=== PATIENT | male | born 1945 | race Caucasian/White ===

== ENCOUNTER 2022-08-12 10:19 | Day surgery (SDC) | payer MEDICARE ==
--- NOTE | 2022-08-12 09:07 | HP ---
DATE OF SURGERY: 08/12/2022 HISTORY OF PRESENT ILLNESS: The patient is a 77-year-old with left inguinal aches and bulges. No prior surgery. It is felt he has a left inguinal hernia. I feel he would benefit from repair. PAST MEDICAL HISTORY: Gastroesophageal reflux disease, arthritis, hypertension. PAST SURGICAL HISTORY: Back surgery. Rotator cuff surgery. Bilateral knee replacement. MEDICATIONS: Toprol, furosemide, amlodipine, aspirin. ALLERGIES: NKDA. FAMILY HISTORY: Heart disease, history of CVA. SOCIAL HISTORY: Former smoker. No alcohol abuse. REVIEW OF SYSTEMS: Fourteen systems reviewed. No chest pain or palpitations. Other systems negative or noncontributory as above and per preadmission questionnaire. PHYSICAL EXAMINATION: BMI 27.91. GENERAL: No acute distress. HEENT: Sclerae nonicteric. NECK: No JVD. CHEST: Equal excursion, nonlabored breathing. CVS: Regular rate and rhythm. ABDOMEN: Soft. Left inguinal hernia on exam. EXTREMITIES: No significant edema. NEURO: Alert, oriented, moving extremities symmetrically. PSYCH: Appropriate mood and affect. SKIN: Dry. IMPRESSION: Left inguinal hernia. I feel the patient would benefit from repair. He was given option of open repair versus laparoscopic repair. The patient prefers to go ahead with open repair. General risk of bleeding or infection, risk of bowel injury, risk of ingrown hair or suture reaction, risk of swelling or firmness on the incision, risk of hematoma or seroma, risk of black, blue bruising, risk of hernia recurrence, risk of mesh infection possibly requiring removal, general risk of aches, pains, burning, numbness lower abdomen, groin, thigh or scrotal area possibly shelter or chronic in nature up to 10-12%, risk of sensory nerve irritation or scar formation or injury, possibly interfering with sexual function from aches and pains standpoint, possibly high risk of hernia recurrence. General risk of anesthesia, sedation, deep venous thrombosis, pulmonary embolism, pneumonia, perioperative aches and pain, risk of hernia recurrence, general risk of anesthesia, deep vein thrombosis, pulmonary embolism, pneumonia but not limited to. He understands and agrees to the planned procedure. Will proceed with open repair of left inguinal hernia with mesh as an outpatient.
[~2022-08-12 10:19] MED LIST: Lactated Ringers 1,000 ML IV ONE; Sensorcaine 0.25% 10 ML ONE
[2022-08-12] MEDS: Lactated Ringers 1,000 ML IV SCH (10:28)
[2022-08-12] MEDS: CEFAZOLIN 2 GM-D5W BAG** 2 GM/50 ML ML IV SCH (10:28)
[2022-08-12] MEDS ORDERED: DIPRIVAN 200 MG/20 ML IV ONE (12:53)
[2022-08-12] MEDS ORDERED: Xylocaine-Mpf 2% 5 Ml Vial ONE (12:54)
[2022-08-12] MEDS ORDERED: Zofran 4 MG/2 ML VIAL ONE (12:54)
[2022-08-12] MEDS ORDERED: Decadron 4 MG INJ ONE (12:54)
[2022-08-12] MEDS ORDERED: SUBLIMAZE 100 MCG/2 ML ONE ×2 (12:54→15:08)
[2022-08-12] MEDS ORDERED: Quelicin Fliptop 200 MG/10 ML ONE (12:54)
[2022-08-12] MEDS ORDERED: OFIRMEV 100 ML IV ONE (13:01)
[2022-08-12] MEDS ORDERED: Pre-Attached Lta Kit TP ONE (13:04)
[2022-08-12] MEDS ORDERED: Sensorcaine 0.25% 10 ML ONE (13:05)
[2022-08-12] MEDS ORDERED: PHENYLEPHRINE HCL ONE (13:22)
[2022-08-12] MEDS ORDERED: Zemuron 100 MG/10 ML ONE (13:29)
[2022-08-12] MEDS ORDERED: BRIDION 200MG/2ML IV ONE (13:33)
[2022-08-12] MEDS ORDERED: ROBINUL ONE (14:09)
[2022-08-12] MEDS ORDERED: DUONEB 0.5-3 MG/3 ml Neb IH ONE (16:26)
[2022-08-12 16:30] VITALS: BP 163/71
[2022-08-12] MEDS: DUONEB 0.5-3 MG/3 ml Neb IH ONE (16:46)
[2022-08-12 16:47] VITALS: PULSE 53; O2SAT 91
--- NOTE | 2022-08-13 11:20 | OP ---
SURGERY DATE/TIME: 08/12/2022 9879 PREOPERATIVE DIAGNOSIS: Left inguinal hernia. POSTOPERATIVE DIAGNOSIS: Left inguinal hernia including small cord lipoma. PROCEDURES: 1) Open repair left inguinal with mesh. 2) Excision of small cord lipoma. SURGEON: Dr. Dax Blanco. ANESTHESIA: General. ESTIMATED BLOOD LOSS: Minimal. INDICATIONS: As noted above. Risks and benefits explained in detail and not limited to and consent was obtained. DESCRIPTION OF PROCEDURE AND FINDINGS: The patient is taken to the operating room. General anesthesia induced. The site had been confirmed and marked in the preoperative holding area. After official time out and no disagreement with planned procedure, a transverse incision made. Left inguinal dissection carried down through Emma fascia to the external oblique towards the external ring. The cord is mobilized off the pubic tubercle with Jocelyn drain. There was quite a bit of fat on the cord but had a direct hernia component and small indirect component as well as small median cord lipoma laterally. Cord lipoma carefully dissected away from the cord structures and high ligated with some 3-0 Vicryl suture ligature and passed off. There was a little small indirect hernia sac this was high ligated with some Vicryl suture. Otherwise it had a direct hernia component, quite weak tissue this is imbricated back towards the fascia on the edge of the inguinal ligament with running 0 PDS up to more normal sized internal ring. Good hemostasis noted. Carefully protecting the visible inguinal and hypogastric branches. Keyhole mesh was used regular size, secured with the fascia around pubic tubercle with 0 Prolene and along Samuel's ligament with 0 Prolene, along the shelving portion of the ilioinguinal ligament and laterally past the internal ring with 0 Prolene. 0 Prolene used to transfix the tails together lateral with 0 Prolene. 0 Prolene used to transfix the rectus fascia medially and 0 Vicryl used to transfix it to the aponeurosis and internal oblique superiorly avoiding the visible branches of the iliohypogastric nerve. Tails are lying nice and flat on external oblique laterally. Good hemostasis noted. New internal ring felt to be not too tight. Good hemostasis noted. The wound is irrigated out. External oblique closed with 0 Vicryl. Emma closed with 3-0 Vicryl. Subcu closed with 3-0 Vicryl. Skin closed with 4-0 Vicryl. Steri-Strips and sterile dressings applied. The patient tolerated the procedure well. He did have moderately weak tissue. It was felt he was needing this to prevent recurrence down the road, best repair as possible at this point. Findings discussed with the family out in the waiting area.
== END 2022-08-12 16:45 | disposition home or self-care (01) ==
LOC: SDC 10:19
PROVIDERS: ATTEND Surgery
DX: K40.30 Unilateral inguinal hernia, with obstruction, without gangrene, not specified as recurrent (principal); D17.6 Benign lipomatous neoplasm of spermatic cord
CPT/HCPCS: 49505; 55520; 64486; 76937; 94640; C1781; 76942; 99100; J0330; J0690; J1100; J2370; J2405; J2704; J3010; A9270-GY

== ENCOUNTER 2024-04-04 14:19 | Observation (INO) | payer MEDICARE ==
--- NOTE | 2024-04-04 14:56 | ERPHSYRPT ---
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 Normal mental status and neuro exam except for gait and leaning to left, without pronator drift or facial weakness and right vision espinoza intact but acuity decreased at 20/50. His Timing/Duration: yesterday Severity: moderate Character of Deficits: vision problems, other (leaning to left) Deficits: off balance Baseline/Normal Cognition: alert oriented x 3 Current Cognition: alert oriented x 3 Baseline Gait: walks w/o assistance Associated Symptoms: denies symptoms Allergies/Adverse Reactions: No Known Drug Allergies Allergy (Verified 04/04/24 14:45) Home Medications: Amlodipine Besylate 5 mg [Norvasc 5 mg] 10 mg PO DAILY 07/16/22 [History] Furosemide 40 mg [Lasix 40 MG] 40 mg PO DAILY 07/16/22 [History] Metoprolol Succinate 100 mg [Toprol Xl 100 MG] 100 mg PO DAILY 07/16/22 [History] Fluticasone Propionate [Flonase NASAL] 2 sprays NS DAILY 04/04/24 [History] Losartan/Hydrochlorothiazide [Losartan-Hctz 100-12.5 mg Tab] 1 each PO DAILY 04/04/24 [History] Hx Tetanus, Diphtheria Vaccination/Date Given: No Hx Influenza Vaccination/Date Given: No Hx Pneumococcal Vaccination/Date Given: No Immunizations Up to Date: Yes Travel Risk - International Travel Have you traveled outside of the country in past 3 weeks: No - Emerging Infectious Disease Are you exhibiting symptoms associated with any current EIDs: No - Review of Systems Constitutional: No Fever, No Chills Eyes: No Symptoms Ears, Nose, & Throat: No Symptoms Respiratory: No Cough, No Dyspnea Cardiac: No Chest Pain, No Edema, No Syncope Abdominal/Gastrointestinal: No Abdominal Pain, No Nausea, No Vomiting, No Diarrhea Genitourinary Symptoms: No Dysuria Musculoskeletal: No Back Pain, No Neck Pain Skin: No Rash Neurological: No Dizziness, No Focal Weakness, No Sensory Changes Psychological: No Symptoms Endocrine: No Symptoms Hematologic/Lymphatic: No Symptoms Immunological/Allergic: No Symptoms All Other Systems: Reviewed and Negative - Past Medical History Pertinent Past Medical History: Yes Neurological History: No Pertinent History ENT History: No Pertinent History Cardiac History: Hypertension Respiratory History: No Pertinent History Endocrine Medical History: No Pertinent History Musculoskeletal History: Osteoarthritis GI Medical History: GERD History: No Pertinent History Psycho-Social History: No Pertinent History Male Reproductive Disorders: No Pertinent History - Past Surgical History Past Surgical History: Yes Neuro Surgical History: No Pertinent History Cardiac: No Pertinent History Respiratory: No Pertinent History Gastrointestinal: No Pertinent History Genitourinary: No Pertinent History Musculoskeletal: Orthopedic Surgery Male Surgical History: No Pertinent History Other Surgical History: back and knee surgery,shoulder - Social History Smoking Status: Former smoker Exposure to second hand smoke: No Drug Use: none - Social Determinants of Health Do you worry about a steady place to live?: No Do you have any problems with any of the following?: No known problems In the past 12 months,have you had to go without utilities?: No Transportation Issues: No Has anyone in your support network made you feel unsafe?: No Have you or anyone in your house had to go without enough: No - Nursing Vital Signs Nursing Vital Signs: Initial Vital Signs Pulse Rate 62 04/04/24 14:30 Respiratory Rate 20 04/04/24 14:30 Blood Pressure 150/59 04/04/24 14:30 O2 Sat by Pulse Oximetry 93 L 04/04/24 14:30 Pain Scale Pain Intensity 3 - Anderson Coma Scale Best Eye Response (Anderson): (4) open spontaneously Best Verbal Response (Uriel): (5) oriented Best Motor Response (Anderson): (6) obeys commands Anderson Total: 15 - Physical Exam General Appearance: no apparent distress, alert Eye Exam: bilateral eye: PERRL, EOMI Ears, Nose, Throat Exam: normal ENT inspection, moist mucous membranes Neck Exam: normal inspection, non-tender, supple Respiratory: normal breath sounds, lungs clear, airway intact, No respiratory distress, No accessory muscle use, No crackles/rales, No rhonchi, No wheezing, No stridor Cardiovascular: regular rate/rhythm, No edema Gastrointestinal: soft, No tenderness, No distention Back Exam: normal inspection Extremity Exam: normal inspection, No pedal edema Peripheral Pulses: carotid (R): 2+, carotid (L): 2+, femoral (R): 2+, femoral (L): 2+, dorsalis-pedis (R): 2+, dorsalis-pedis (L): 2+ Mental Status: alert, 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: tongue midline Coordination/Gait: normal finger to nose, normal gait DTR: bicep (R): 2+, bicep (L): 2+, tricep (R): 2+, tricep (L): 2+, knee (R): 2+, knee (L): 2+, ankle (R): 2+, ankle (L): 2+ Skin Exam: normal color, warm, dry, No rash SpO2: 93 - Course Nursing assessment & vital signs reviewed: Yes Ordered Tests: Active Orders 24 hr Category Date Time Status Freight Broker STAT Care 04/04/24 15:06 Active EKG-ER Only STAT Care 04/04/24 15:06 Active IV Insertion STAT Care 04/04/24 15:06 Active Pulse Oximetry (ED) STAT Care 04/04/24 15:06 Active HEAD WITHOUT CONTRAST [CT] Stat Exams 04/04/24 15:15 Completed CBC W DIFF Stat Lab 04/04/24 15:10 Completed CMP Stat Lab 04/04/24 15:10 Completed TROPONIN Q4H Lab 04/04/24 15:10 Completed TROPONIN Q4H Lab 04/04/24 19:15 Ordered TROPONIN Q4H Lab 04/04/24 23:15 Ordered Lab/Rad Data: Laboratory Result Diagrams 04/04/24 15:10 04/04/24 15:10 Laboratory Results 04/04/24 04/04/24 04/04/24 Range/Units 15:10 15:10 15:10 WBC 6.4 (4.23-9.07) x10^3/uL RBC 5.59 (4.63-6.08) x10^6/uL Hgb 16.5 (13.7-17.5) g/dL Hct 50.8 (40.1-51.0) % MCV 90.9 (79.0-92.2) fL MCH 29.5 (25.7-32.2) pg MCHC 32.5 (32.3-36.5) g/dL RDW 13.2 (11.6-14.4) % Plt Count 215 (163-337) x10^3/uL MPV 11.0 (9.4-12.4) fL Gran % 61.8 (34.0-67.9) % Immature Gran % (Auto) 0.5 H (0.001-0.429) % Nucleat RBC Rel Count 0.0 (0.00-0.2) % Eos # (Auto) 0.43 (0.04-0.54) x10^3/uL Immature Gran # (Auto) 0.03 (0.001-0.031) x10^3u/L Absolute Lymphs (auto) 1.13 L (1.32-3.57) x10^3/uL Absolute Monos (auto) 0.81 (0.30-0.82) x10^3/uL Absolute Nucleated RBC 0.00 (0.00-0.012) x10^3u/L Lymphocytes % 17.6 L (21.8-53.1) % Monocytes % 12.6 H (5.3-12.2) % Eosinophils % 6.7 (0.8-7.0) % Basophils % 0.8 (0.2-1.2) % Absolute Granulocytes 3.98 (1.78-5.38) x10^3/uL Basophils # 0.05 (0.01-0.08) x10^3/uL Sodium 141 (135-145) mmol/L Potassium 3.8 (3.5-5.1) mmol/L Chloride 99 (98-107) mmol/L Carbon Dioxide 29 (22-30) mmol/L Anion Gap 16.8 H (5-15) MEQ/L BUN 26 H (9-20) mg/dL Creatinine 0.80 (0.66-1.25) mg/dL Estimated GFR 90.6 ML/MIN Glucose 132 H (74-106) mg/dL Calcium 9.1 (8.4-10.2) mg/dL Total Bilirubin 0.60 (0.2-1.3) mg/dL AST 35 (17-59) U/L ALT 30 (0-50) U/L Alkaline Phosphatase 82 (38-126) U/L Troponin I < 0.012 (0.000-0.033) ng/mL Serum Total Protein 7.2 (6.3-8.2) g/dL Albumin 4.3 (3.5-5.0) g/dL - Progress Progress: improved, re-examined Progress Note: 04/04/24 18:53 Consulted with tele neuro who advised admission for PT to avoid falls, and they also feel that outpt MRI tomorrow is soon enough to rule out additional Dx and that pt is outside TPA window but would benefit from expeditious. Consulted and discussed with pt family and Dr. Monson hospitalist and all agree best to palce pt in on obs and have MRI Friday and this is scheduled. Discussed with Dr.: Other (Dr. Monson) Will see patient in: hospital (observation) Counseled pt/family regarding: lab results, diagnosis, need for follow-up, rad results Medical Desision Making - Independent Historian Additional History obtained from: Family - Discussion of managment Care discussed with:: specialist Reviewed:: Test results, Need for additional workup Agreed on:: Treatment plan, need for follow-up - Diagnostic Testing Diagnostic test were ordered, analyzed, and reviewed by me: Yes Radiological Interpretation: Interpreted by me, Reviewed by me, Teleradiologist Report - Risk of complications The pt has a mod risk of morbidity or mortality based on: Need for prescription drug management The pt has a high risk of morbidity or mortality based on: Decision regarding hospitilization or escalation of hosp level of care - Departure Departure Disposition: Observation Clinical Impression: ataxia, vision changes Condition: Good Critical Care Time: No Referrals: AMADO ROME MD [Primary Care Provider] - Follow up/PCP as directed
[2024-04-04 15:18] LABS: Absolute Neutrophil Ct (ANC) 3.98 x10^3/uL (1.78-5.38); BASOPHIL % 0.8 % (0.2-1.2); Basophil (Absolute #) 0.05 x10^3/uL (0.01-0.08); Eosinophil % 6.7 % (0.8-7.0); Eosinophil (Absolute #) 0.43 x10^3/uL (0.04-0.54); Hematocrit 50.8 % (40.1-51.0); Hemoglobin 16.5 g/dL (13.7-17.5); IMMATURE GRAN # 0.03 x10^3u/L (0.001-0.031); IMMATURE GRAN % 0.5 % (0.001-0.429); Lymphocyte (Absolute #) 1.13 x10^3/uL (1.32-3.57); Lymphocytes % 17.6 % (21.8-53.1); Mean Cell Volume 90.9 fL (79.0-92.2); Mean Corpuscular Hemoglobin 29.5 pg (25.7-32.2); Mean Corpuscular Hgb Concent. 32.5 g/dL (32.3-36.5); Monocyte (Absolute #) 0.81 x10^3/uL (0.30-0.82); Monocytes % 12.6 % (5.3-12.2); Neutrophil % 61.8 % (34.0-67.9); Platelet Count 215 x10^3/uL (163-337); Red Blood Count 5.59 x10^6/uL (4.63-6.08); Red Cell Distribution Width 13.2 % (11.6-14.4); White Blood Count 6.4 x10^3/uL (4.23-9.07)
[2024-04-04 15:32] LABS: ALBUMIN 4.3 g/dL (3.5-5.0); ANION GAP 16.8 MEQ/L (5-15); BILIRUBIN,TOTAL 0.6 mg/dL (0.2-1.3); Calcium 9.1 mg/dL (8.4-10.2); Creatinine 1 0.8 mg/dL (0.66-1.25); EST GLOMERULAR FILTRATION RATE 90.6 ML/MIN; Potassium 3.8 mmol/L (3.5-5.1); Total Protein 7.2 g/dL (6.3-8.2)
--- NOTE | 2024-04-04 16:02 | XRAY ---
CLINICAL HISTORY: DIZZY COMPARISON: TECHNIQUE: Axial non-contrast CT scan of the brain was performed from the skull base to the high parietal region with coronal and sagittal reformats. One of the following dose reduction techniques were utilized for this exam: Automated exposure control, adjustment of the mA and/or kV according to patient size, and use of iterative reconstruction. CTDI:53.92mGy, DLP: 1002.79mGy*cm. FINDINGS: Brain Parenchyma: Normal attenuation of the cerebral hemispheres, cerebellum, and brainstem. No evidence of acute infarct, hemorrhage, or mass effect. Hypodense areas are noted in periventriclar, subcortical, and deep white matter representing chronic microvascular ischemic changes. Age related involutional changes are noted. Ventricular System: Ventricles are normal in size and configuration. No evidence of hydrocephalus or ventricular enlargement. Age-related brain atrophic changes are noted. Subarachnoid Spaces: Normal sulci and cisterns. No evidence of subarachnoid hemorrhage or extra-axial fluid collections. Cerebellum and Brainstem: Normal size and signal. No masses, lesions, or areas of abnormal signal. Orbits: Left eye lens is not visualized. Calcified rim is noted almost completely involving the left sclera. Right globe and orbit appear unremarkable. Sinuses: Clear paranasal sinuses. No evidence of sinusitis or mucosal thickening. Mildly deviated nasal septum is noted to the left side. Kae bullosa is noted on the right side. Mastoid Air Cells: Clear mastoid air cells. No evidence of mastoiditis. Skull and Meninges: Normal skull morphology. IMPRESSION: 1. No established territorial infarction, intracranial hemorrhage, or mass effect was noted. 2. Age-related brain atrophic changes and chronic microvascular ischemic changes. 3. Left eye lens is not visualized. 4. Calcified rim is noted almost completely involving the left sclera. Needs clinical correlation. Electronically Signed by: Karime Adamson MD. (04/04/2024 15:58:31 EDT)
[2024-04-04] MEDS ORDERED: TYLENOL 325 MG PO PRN (21:25)
--- NOTE | 2024-04-04 21:34 | PCM.HP ---
History of Present Illness - Chief Complaint Chief Complaint: loss of balance, blurry vision Date: 04/04/24 History of Present Illness: is a 79 year old man with h/o hypertension and possible HFpEF, here with blurry vision and unsteady gait. 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 However, last night at 2130, he had sudden onset of severe blurry vision in his right eye and dizziness with difficulty walking, such that he was afraid he would fall. He denies lightheadedness/presyncope, vertigo, headache, focal weakness or numbness. He has not had a similar episode of intense imbalance or sudden worsening of visual acuity. He quit smoking 20 years ago. Has never had CVA as far as he is aware. He notes that the thinks his vision and balance are improving a little, when he last had to walk to the bathroom, although still difficult compared to his baseline. - Review of Systems Constitutional: Fatigue, No Fever, No Malaise, No Night Sweats Eyes: Vision Changes, No Eye Pain, No Eye Redness, No Double Vision Ears, Nose, & Throat: No Ear Pain, No Hearing Changes, No Nose Congestion, No Sinus Drainage, No Throat Pain Respiratory: Short Of Breath (No dyspnea currently, but patient told he has intermittent hypoxia. He has home oxygen but does not use as currently non- functional. Low-normal SpO2 on arrival. Follows with barometers calibrator here. ), No Cough Cardiac: No Chest Pain, No Palpitations, No Syncope, No Orthopnea Abdominal/Gastrointestinal: No Abdominal Pain, No Nausea, No Vomiting Genitourinary Symptoms: No Dysuria, No Frequency Neurological: Dizziness, Gait Changes, No Focal Weakness, No Headache, No Paralysis, No Parasthesia All Other Systems: Reviewed and Negative Medications & Allergies Home Medications: Home Medication List Amlodipine Besylate 5 mg [Norvasc 5 mg] 10 mg PO DAILY 07/16/22 [History Confirmed 04/04/24] Furosemide 40 mg [Lasix 40 MG] 40 mg PO DAILY 07/16/22 [History Confirmed 04/04/24] Metoprolol Succinate 100 mg [Toprol Xl 100 MG] 100 mg PO DAILY 07/16/22 [History Confirmed 04/04/24] Aspirin EC 81 mg [Ecotrin 81 mg] 81 mg PO DAILY 04/04/24 [History Confirmed 04/04/24] Fluticasone Propionate [Flonase NASAL] 2 sprays NS DAILY 04/04/24 [History Confirmed 04/04/24] Losartan Potassium 100 mg PO DAILY 04/04/24 [History Confirmed 04/04/24] Allergies/Adverse Reactions: Allergies Allergy/AdvReac Type Severity Reaction Status Date / Time No Known Drug Allergies Allergy Verified 04/04/24 14:45 - Past Medical History Past Medical History: Yes Neurological History: No Pertinent History ENT History: No Pertinent History Cardiac History: Congestive Heart Failure, Hypertension Respiratory History: No Pertinent History, CHF, Sleep Apnea Endocrine Medical History: No Pertinent History Musculoskelatal History: Osteoarthritis GI Medical History: GERD History: No Pertinent History Pyscho-Social History: No Pertinent History Male Reproductive Disorders: No Pertinent History - Past Surgical History Past Surgical History: Yes Neuro Surgical History: No Pertinent History Cardiac History: No Pertinent History Respiratory Surgery: No Pertinent History GI Surgical History: No Pertinent History, Hernia Repair Genitourinary Surgical Hx: No Pertinent History Musculskeletal Surgical Hx: Orthopedic Surgery Male Surgical History: No Pertinent History Other Surgical History: back and knee surgery,shoulder Significant Family History: no pertinent family hx - Social History Smoking Status: Former smoker (quit 20 years ago) Exposure to second hand smoke: No Alcohol: None Drug Use: none - Social Determinants of Health Will the patient participate in the screening: Yes Do you worry about a steady place to live?: No Do you have any problems with any of the following?: No known problems In the past 12 months,have you had to go without utilities?: No Have you or anyone in your house had to go without enough: No Transportation Issues: No Has anyone in your support network made you feel unsafe?: No Does the patient want assistance with any of the above?: No - Physical Exam Vital Signs: Vital Signs - 24 hr Temp Pulse Resp BP BP Pulse Ox 04/04/24 20:02 98.2 F 54 L 16 179/78 91 L 04/04/24 18:58 93 L 04/04/24 18:00 107/86 92 L 04/04/24 17:30 79 12 160/71 90 L 04/04/24 17:00 57 L 14 147/63 90 L 04/04/24 16:50 55 L 14 91 L 04/04/24 16:40 55 L 13 90 L 04/04/24 16:30 51 L 17 92 L 04/04/24 16:20 58 L 15 90 L 04/04/24 16:10 56 L 15 91 L 04/04/24 16:00 55 L 14 92 L 04/04/24 15:50 55 L 18 90 L 04/04/24 15:40 57 L 19 90 L 04/04/24 15:32 56 L 19 92 L 04/04/24 15:19 95 04/04/24 15:01 129/54 04/04/24 14:30 53 L 17 150/59 150/59 91 L GENERAL: Lying in bed in no acute distress NEURO: Face symmetric, moving all extremities well, no sensory changes CV: mildly bradycardic but regular, no murmurs, no edema PULM: Clear to auscultation bilaterally, no work of breathing, on room air ABD: non-distended, non-tender PSYCH: alert, oriented x3 Results - Labs Lab/Micro Results: Lab Results-Last 24 Hours 04/04/24 04/04/24 04/04/24 Range/Units 15:10 15:10 15:10 WBC 6.4 (4.23-9.07) x10^3/uL RBC 5.59 (4.63-6.08) x10^6/uL Hgb 16.5 (13.7-17.5) g/dL Hct 50.8 (40.1-51.0) % MCV 90.9 (79.0-92.2) fL MCH 29.5 (25.7-32.2) pg MCHC 32.5 (32.3-36.5) g/dL RDW 13.2 (11.6-14.4) % Plt Count 215 (163-337) x10^3/uL MPV 11.0 (9.4-12.4) fL Gran % 61.8 (34.0-67.9) % Immature Gran % (Auto) 0.5 H (0.001-0.429) % Nucleat RBC Rel Count 0.0 (0.00-0.2) % Eos # (Auto) 0.43 (0.04-0.54) x10^3/uL Immature Gran # (Auto) 0.03 (0.001-0.031) x10^3u/L Absolute Lymphs (auto) 1.13 L (1.32-3.57) x10^3/uL Absolute Monos (auto) 0.81 (0.30-0.82) x10^3/uL Absolute Nucleated RBC 0.00 (0.00-0.012) x10^3u/L Lymphocytes % 17.6 L (21.8-53.1) % Monocytes % 12.6 H (5.3-12.2) % Eosinophils % 6.7 (0.8-7.0) % Basophils % 0.8 (0.2-1.2) % Absolute Granulocytes 3.98 (1.78-5.38) x10^3/uL Basophils # 0.05 (0.01-0.08) x10^3/uL Sodium 141 (135-145) mmol/L Potassium 3.8 (3.5-5.1) mmol/L Chloride 99 (98-107) mmol/L Carbon Dioxide 29 (22-30) mmol/L Anion Gap 16.8 H (5-15) MEQ/L BUN 26 H (9-20) mg/dL Creatinine 0.80 (0.66-1.25) mg/dL Estimated GFR 90.6 ML/MIN Glucose 132 H (74-106) mg/dL Calcium 9.1 (8.4-10.2) mg/dL Total Bilirubin 0.60 (0.2-1.3) mg/dL AST 35 (17-59) U/L ALT 30 (0-50) U/L Alkaline Phosphatase 82 (38-126) U/L Troponin I < 0.012 (0.000-0.033) ng/mL Serum Total Protein 7.2 (6.3-8.2) g/dL Albumin 4.3 (3.5-5.0) g/dL 04/04/24 Range/Units 19:08 WBC (4.23-9.07) x10^3/uL RBC (4.63-6.08) x10^6/uL Hgb (13.7-17.5) g/dL Hct (40.1-51.0) % MCV (79.0-92.2) fL MCH (25.7-32.2) pg MCHC (32.3-36.5) g/dL RDW (11.6-14.4) % Plt Count (163-337) x10^3/uL MPV (9.4-12.4) fL Gran % (34.0-67.9) % Immature Gran % (Auto) (0.001-0.429) % Nucleat RBC Rel Count (0.00-0.2) % Eos # (Auto) (0.04-0.54) x10^3/uL Immature Gran # (Auto) (0.001-0.031) x10^3u/L Absolute Lymphs (auto) (1.32-3.57) x10^3/uL Absolute Monos (auto) (0.30-0.82) x10^3/uL Absolute Nucleated RBC (0.00-0.012) x10^3u/L Lymphocytes % (21.8-53.1) % Monocytes % (5.3-12.2) % Eosinophils % (0.8-7.0) % Basophils % (0.2-1.2) % Absolute Granulocytes (1.78-5.38) x10^3/uL Basophils # (0.01-0.08) x10^3/uL Sodium (135-145) mmol/L Potassium (3.5-5.1) mmol/L Chloride (98-107) mmol/L Carbon Dioxide (22-30) mmol/L Anion Gap (5-15) MEQ/L BUN (9-20) mg/dL Creatinine (0.66-1.25) mg/dL Estimated GFR ML/MIN Glucose (74-106) mg/dL Calcium (8.4-10.2) mg/dL Total Bilirubin (0.2-1.3) mg/dL AST (17-59) U/L ALT (0-50) U/L Alkaline Phosphatase (38-126) U/L Troponin I < 0.012 (0.000-0.033) ng/mL Serum Total Protein (6.3-8.2) g/dL Albumin (3.5-5.0) g/dL - Radiology Impressions Radiology Exams & Impressions: Radiology Procedures Category Date Time Status HEAD WITHOUT CONTRAST [CT] Stat Exams 04/04/24 15:15 Completed MRI BRAIN W/O CONTRAST [MRI] Routine Exams 04/04/24 21:[address] Head - age-related atrophic changes, but no acute ischemic or hemorrhagic stroke - Other Procedures and Tests Respiratory Therapy 04/04/24 19:21 Respiratory Therapy Consult ONCE 04/04/24 21:13 BiPap/CPAP ROUTINE Assessment/Plan (1) Ataxia Current Visit: Yes Status: Acute Assessment & Plan: 79 y/o M with h/o HTN, possible HFpEF and borderline hypoxia, here with ataxia and vision changes. ## Possible CVA - patient with acute onset of ataxia associated with vision changes. No vertigo per description, but noted to have wide gait. Concerning for more central than peripheral process with the different neuro system findings and lack of ear symptoms or true vertigo. Most concerning for possible stroke. No large stroke or hemorrhage seen on CT. Patient's risk factors for stroke include age and hypertension. Note, BP a little elevated on arrival to floor. - place in observation for evaluation of stroke - neurology consulted in ED; see their note as well - obtain MRI brain for stroke evaluation - if present, will need echo, vascular imaging - check A1c, B12, Folate for other metabolic causes of ataxia - monitor on telemetry for possible cardioembolic causes of stroke - allow permissive hypertension tonight for possible stroke - PT/OT evaluation for his gait, consideration for rehab - continue his aspirin 81 mg daily - if find stroke, will need addition of Plavix for 3 weeks ## Hypertension - BP a little elevated this evening. - allow permissive hypertension tonight - restart home BP meds in the morning to allow BP to come down slowly tomorrow - losartan 100, Toprol XL 100, Norvasc 10, Lasix 40 ## Borderline hypoxia - patient reports h/o intermittent hypoxia requiring supplementation oxygen at home. Here he has maintained SpO2 in low 90s, and not yet required oxygen. - monitor on continuous pulse oximetry. Code status: Full code Prophylaxis: lovenox (Cassy score 5) Diet: Regular Dispo: Place in observation, expect home in next 24-48 hours after evaluation Code(s): R27.0 - ATAXIA, UNSPECIFIED Telemedicine Encounter - Telemedicine Encounter Telemedicine Encounter: "The entirety of this encounter was performed via Telemedicine" This visit was performed using real-time audio and video connection between my location and thepatients locationwith the assistance of a surrogateat the patients location. Written or verbal consent was obtained from the patient/guardian to perform this visit usingsynchronoustelemedicine technology. Any patient questions regarding the telemedicine interaction were answered.
[2024-04-05 04:34] LABS: Hematocrit 50.1 % (40.1-51.0); Hemoglobin 16.4 g/dL (13.7-17.5); Mean Cell Volume 90.3 fL (79.0-92.2); Mean Corpuscular Hemoglobin 29.5 pg (25.7-32.2); Mean Corpuscular Hgb Concent. 32.7 g/dL (32.3-36.5); Mean Platelet Volume 10.4 fL (9.4-12.4); Platelet Count 198 x10^3/uL (163-337); Red Blood Count 5.55 x10^6/uL (4.63-6.08); Red Cell Distribution Width 13.3 % (11.6-14.4); White Blood Count 6.9 x10^3/uL (4.23-9.07)
[2024-04-05 04:59] LABS: ANION GAP 10.6 MEQ/L (5-15); Calcium 9.1 mg/dL (8.4-10.2); Creatinine 1 0.67 mg/dL (0.66-1.25); EST GLOMERULAR FILTRATION RATE 95.6 ML/MIN; Potassium 3.8 mmol/L (3.5-5.1)
--- NOTE | 2024-04-05 05:17 | PCM.NOTE ---
Date and Time: 04/05/24 0511 Subjective Assessment: HPI: Mr. Lynn is a 79 year old male with a pmhx of HTN, OA, and GERD admitted 04/04/24 for evaluation of ataxia and vision changes. Patient reported unsteady gait ( for the past 6-8 months), dizziness and blurred vision in right eye since the evening before arrival. 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 He has not had a similar episode of intense imbalance or sudden worsening of visual acuity. CT head with no established territorial infarction, intracranial hemorrhage, or mass. Left eye lens is not visualized. Calcified rim is noted almost completely involving the left sclera effect was noted. Lab findings remarkable for elevated GAP and BUN. Vitals stable. Neurology consulted with recommendations for MRI and PT evaluation. 04/05/24: Met with patient bedside. Dizziness and vision blurriness have resolved. Plan for MRI today. No aphasia or weakness. Patient is requesting discharge today. Tele-neuro consulted with recs to continue 81mg ASA and ophthalmology appt. Patient states he does need a new pair of glasses and has appt in May -we will try to move this up for him. PT to work with patient today. Neuro exam normal. Pending results, patient may be able to discharge today. - Review of Systems Constitutional: No Symptoms Eyes: No Symptoms Ears, Nose, & Throat: No Symptoms Respiratory: No Symptoms Cardiac: No Symptoms Abdominal/Gastrointestinal: No Symptoms Genitourinary Symptoms: No Symptoms Musculoskeletal: No Symptoms Skin: No Symptoms Neurological: No Symptoms Psychological: No Symptoms Endocrine: No Symptoms Hematologic/Lymphatic: No Symptoms Immunological/Allergic: No Symptoms Objective Exam General Appearance: no apparent distress Neurologic Exam: alert, oriented x 3, cooperative, normal mood/affect, No motor deficits, No sensory deficit, No confusion, No motor weakness, No facial droop, No slurred speech, No aphasia Skin Exam: normal color Eye Exam: PERRL Ears, Nose, Throat Exam: normal ENT inspection Neck Exam: normal inspection Respiratory Exam: normal breath sounds, lungs clear Cardiovascular Exam: regular rate/rhythm, normal heart sounds Gastrointestinal/Abdomen Exam: soft, normal bowel sounds Extremity Exam: normal inspection Back Exam: normal inspection Male Genitalia Exam: deferred Rectal Exam: deferred Objective Data Vital Signs: Vital Signs - 24 hr Temp Pulse Resp BP BP Pulse Ox 04/05/24 03:54 14 04/05/24 03:47 97.9 F 63 22 130/96 93 L 04/04/24 23:59 14 04/04/24 23:52 97.9 F 71 16 178/74 94 L 04/04/24 22:00 56 L 16 91 L 04/04/24 20:02 98.2 F 54 L 16 179/78 91 L 04/04/24 18:58 93 L 04/04/24 18:00 107/86 92 L 04/04/24 17:30 79 12 160/71 90 L 04/04/24 17:00 57 L 14 147/63 90 L 04/04/24 16:50 55 L 14 91 L 04/04/24 16:40 55 L 13 90 L 04/04/24 16:30 51 L 17 92 L 04/04/24 16:20 58 L 15 90 L 04/04/24 16:10 56 L 15 91 L 04/04/24 16:00 55 L 14 92 L 04/04/24 15:50 55 L 18 90 L 04/04/24 15:40 57 L 19 90 L 04/04/24 15:32 56 L 19 92 L 04/04/24 15:19 95 04/04/24 15:01 129/54 04/04/24 14:30 53 L 17 150/59 150/59 91 L Pain Assessment - Last Documented Pain Intensity 3 Intake and Output: Intake & Output 04/02/24 04/03/24 04/04/24 04/05/24 11:59 11:59 11:59 11:59 Intake Total 280 Balance 280 Weight 91.6 kg Lab Results: Lab Results-Last 24 Hours 04/04/24 04/04/24 04/04/24 Range/Units 15:10 15:10 15:10 WBC 6.4 (4.23-9.07) x10^3/uL RBC 5.59 (4.63-6.08) x10^6/uL Hgb 16.5 (13.7-17.5) g/dL Hct 50.8 (40.1-51.0) % MCV 90.9 (79.0-92.2) fL MCH 29.5 (25.7-32.2) pg MCHC 32.5 (32.3-36.5) g/dL RDW 13.2 (11.6-14.4) % Plt Count 215 (163-337) x10^3/uL MPV 11.0 (9.4-12.4) fL Gran % 61.8 (34.0-67.9) % Immature Gran % (Auto) 0.5 H (0.001-0.429) % Nucleat RBC Rel Count 0.0 (0.00-0.2) % Eos # (Auto) 0.43 (0.04-0.54) x10^3/uL Immature Gran # (Auto) 0.03 (0.001-0.031) x10^3u/L Absolute Lymphs (auto) 1.13 L (1.32-3.57) x10^3/uL Absolute Monos (auto) 0.81 (0.30-0.82) x10^3/uL Absolute Nucleated RBC 0.00 (0.00-0.012) x10^3u/L Lymphocytes % 17.6 L (21.8-53.1) % Monocytes % 12.6 H (5.3-12.2) % Eosinophils % 6.7 (0.8-7.0) % Basophils % 0.8 (0.2-1.2) % Absolute Granulocytes 3.98 (1.78-5.38) x10^3/uL Basophils # 0.05 (0.01-0.08) x10^3/uL Sodium 141 (135-145) mmol/L Potassium 3.8 (3.5-5.1) mmol/L Chloride 99 (98-107) mmol/L Carbon Dioxide 29 (22-30) mmol/L Anion Gap 16.8 H (5-15) MEQ/L BUN 26 H (9-20) mg/dL Creatinine 0.80 (0.66-1.25) mg/dL Estimated GFR 90.6 ML/MIN Glucose 132 H (74-106) mg/dL Hemoglobin A1c (4.5-6.0) % Calcium 9.1 (8.4-10.2) mg/dL Total Bilirubin 0.60 (0.2-1.3) mg/dL AST 35 (17-59) U/L ALT 30 (0-50) U/L Alkaline Phosphatase 82 (38-126) U/L Troponin I < 0.012 (0.000-0.033) ng/mL Serum Total Protein 7.2 (6.3-8.2) g/dL Albumin 4.3 (3.5-5.0) g/dL 04/04/24 04/04/24 04/05/24 Range/Units 19:08 23:36 04:30 WBC 6.9 (4.23-9.07) x10^3/uL RBC 5.55 (4.63-6.08) x10^6/uL Hgb 16.4 (13.7-17.5) g/dL Hct 50.1 (40.1-51.0) % MCV 90.3 (79.0-92.2) fL MCH 29.5 (25.7-32.2) pg MCHC 32.7 (32.3-36.5) g/dL RDW 13.3 (11.6-14.4) % Plt Count 198 (163-337) x10^3/uL MPV 10.4 (9.4-12.4) fL Gran % (34.0-67.9) % Immature Gran % (Auto) (0.001-0.429) % Nucleat RBC Rel Count (0.00-0.2) % Eos # (Auto) (0.04-0.54) x10^3/uL Immature Gran # (Auto) (0.001-0.031) x10^3u/L Absolute Lymphs (auto) (1.32-3.57) x10^3/uL Absolute Monos (auto) (0.30-0.82) x10^3/uL Absolute Nucleated RBC (0.00-0.012) x10^3u/L Lymphocytes % (21.8-53.1) % Monocytes % (5.3-12.2) % Eosinophils % (0.8-7.0) % Basophils % (0.2-1.2) % Absolute Granulocytes (1.78-5.38) x10^3/uL Basophils # (0.01-0.08) x10^3/uL Sodium (135-145) mmol/L Potassium (3.5-5.1) mmol/L Chloride (98-107) mmol/L Carbon Dioxide (22-30) mmol/L Anion Gap (5-15) MEQ/L BUN (9-20) mg/dL Creatinine (0.66-1.25) mg/dL Estimated GFR ML/MIN Glucose (74-106) mg/dL Hemoglobin A1c (4.5-6.0) % Calcium (8.4-10.2) mg/dL Total Bilirubin (0.2-1.3) mg/dL AST (17-59) U/L ALT (0-50) U/L Alkaline Phosphatase (38-126) U/L Troponin I < 0.012 < 0.012 (0.000-0.033) ng/mL Serum Total Protein (6.3-8.2) g/dL Albumin (3.5-5.0) g/dL 04/05/24 04/05/24 Range/Units 04:30 04:30 WBC (4.23-9.07) x10^3/uL RBC (4.63-6.08) x10^6/uL Hgb (13.7-17.5) g/dL Hct (40.1-51.0) % MCV (79.0-92.2) fL MCH (25.7-32.2) pg MCHC (32.3-36.5) g/dL RDW (11.6-14.4) % Plt Count (163-337) x10^3/uL MPV (9.4-12.4) fL Gran % (34.0-67.9) % Immature Gran % (Auto) (0.001-0.429) % Nucleat RBC Rel Count (0.00-0.2) % Eos # (Auto) (0.04-0.54) x10^3/uL Immature Gran # (Auto) (0.001-0.031) x10^3u/L Absolute Lymphs (auto) (1.32-3.57) x10^3/uL Absolute Monos (auto) (0.30-0.82) x10^3/uL Absolute Nucleated RBC (0.00-0.012) x10^3u/L Lymphocytes % (21.8-53.1) % Monocytes % (5.3-12.2) % Eosinophils % (0.8-7.0) % Basophils % (0.2-1.2) % Absolute Granulocytes (1.78-5.38) x10^3/uL Basophils # (0.01-0.08) x10^3/uL Sodium 139 (135-145) mmol/L Potassium 3.8 (3.5-5.1) mmol/L Chloride 101 (98-107) mmol/L Carbon Dioxide 30 (22-30) mmol/L Anion Gap 10.6 (5-15) MEQ/L BUN 20 (9-20) mg/dL Creatinine 0.67 (0.66-1.25) mg/dL Estimated GFR 95.6 ML/MIN Glucose 103 (74-106) mg/dL Hemoglobin A1c 5.97 (4.5-6.0) % Calcium 9.1 (8.4-10.2) mg/dL Total Bilirubin (0.2-1.3) mg/dL AST (17-59) U/L ALT (0-50) U/L Alkaline Phosphatase (38-126) U/L Troponin I (0.000-0.033) ng/mL Serum Total Protein (6.3-8.2) g/dL Albumin (3.5-5.0) g/dL Radiology Exams: Radiology Procedures Category Date Time Status HEAD WITHOUT CONTRAST [CT] Stat Exams 04/04/24 15:15 Completed MRI BRAIN W/O CONTRAST [MRI] Routine Exams 04/04/24 21:26 Ordered Assessment/Plan (1) Ataxia Current Visit: Yes Status: Acute Assessment & Plan: -?possible CVA -CT head with no acute findings -tele-neuro consulted with recs for MRI today- if stroke shows on MRI will complete echo and MRA head/neck -tele -permissive HTN x 24 hours -PT/OT eval -ASA 81mg -currently taking - Plavix if MRI shows CVA -A1c 5.97 -B12/Fol - pending -lipid pending Code(s): R27.0 - ATAXIA, UNSPECIFIED (2) HTN (hypertension) Current Visit: Yes Status: Acute Assessment & Plan: -permissive HTN for the first 24 hours - can resume home meds today Code(s): I10 - ESSENTIAL (PRIMARY) HYPERTENSION (3) Hypoxia Current Visit: Yes Status: Acute Assessment & Plan: -borderline with prn oxygen at home -continuous pulse ox -supplemental oxygen for goal spo2 >91% - at 3L with spo2 at 91% Code status: Full code Prophylaxis: lovenox (Cassy score 5) Diet: Regular Dispo: Place in observation, expect home in next 24-48 hours after evaluation Code(s): R09.02 - HYPOXEMIA
[2024-04-05 08:48] LABS: Folate (Folic Acid) > 20.0 ng/mL (2.76 - >20); Vitamin B12 344 pg/mL (239-931)
--- NOTE | 2024-04-05 09:33 | XRAY ---
Indication: MRI clearance. Foreign body left eye. Comparison: None 2 view orbits demonstrates 2.1 cm rounded nonmetallic density left orbit. No metallic foreign body or acute findings.
[2024-04-05] MEDS ORDERED: NON-FORMULARY ITEM (Losartan Potassium [Losartan Potassium] 100 MG Tablet) PO SCH (10:00)
[2024-04-05] MEDS: NORVASC 5 MG PO SCH (11:37)
[2024-04-05] MEDS: Cozaar 50 MG PO SCH (11:37)
[2024-04-05] MEDS: ECOTRIN 81 MG PO SCH (11:38)
[2024-04-05] MEDS: Lasix 40 MG PO SCH (11:38)
[2024-04-05] MEDS: Toprol Xl 100 MG PO SCH (11:38)
[2024-04-05] MEDS: ENOXAPARIN SODIUM SQ SCH (11:41)
[2024-04-05] MEDS: Flonase NASAL NS SCH (11:43)
--- NOTE | 2024-04-05 12:21 | XRAY ---
Indication: Ataxia. Vision change. CVA. Negative CT head without contrast exam. Sagittal, coronal, and axial MRI brain performed without contrast using T1, T2, FLAIR, diffusion, and ADC sequences. Comparison: None Age-appropriate global atrophy and mild periventricular degenerative micro-ischemia signal bilaterally. Diffusion images are negative for restricted signal. No acute intracranial hemorrhage, abnormal extra-axial fluid collection, or mass effect. Fourth ventricle is midline without hydrocephalus. 7/8 cranial nerve complex bilaterally symmetric. Normal flow-void signal within the major intracerebral circulation. Normal appearing craniocervical junction and sella turcica. Paranasal sinuses are clear. Impression: 1. Atrophy and degenerative micro-ischemia within normal limits. 2. Remaining MRI brain without contrast exam is negative.
[2024-04-05] MEDS ORDERED: PLAVIX Tablet PO ONE (13:30)
--- NOTE | 2024-04-05 14:30 | XRAY ---
Indication: Short of breath. Comparison: July 04, 2023 Portable chest remains hyperinflated and clear. Heart not enlarged. Bony thorax intact again with osteopenia, mild degenerative changes, and left shoulder surgery. Impression: Continued nonacute hyperinflated chest with chronic bony findings.
--- NOTE | 2024-04-05 14:54 | PCM.NOTE ---
Date and Time: 04/05/24 1456 Subjective Assessment: Physician Signature This document was electronically signed by: Carole Moreno MD 04/05/2024 02:53 PM Consult Cover Page FROM: Nelia Maternova, Call Back Number: [phone] SUBJECT: Consult Recommendations Date and Time of Report: 04/05/2024 02:53 PM ET Items Contained in this Document: Neurology Progress Note Consult Information Member Facility: [facility] Facility Consult ID: [id number] Facility Time Zone: ET Date and Time of Request: 04-05-2024 02:21 PM ET Requesting Clinician: DR KOCH Patient Name: JANEL PARKER Date of : 1945 Gender: Male Patient identity was confirmed at the beginning of the consult with the patient /family/staff using two personal identifiers: Patient name and Reason for Consult Reason for Consult: Follow Up General Patient Location and Admission Status: Inpatient Progress Note Clinical Notes: Spoke to primary team over the phone regarding this follow up consultation. Patient's MRIB was completed which showed no acute pathology and no prior strokes. Per prior conversations with teleneuro, recommendations were to continue with bASA and OP optho follow up. Primary team was confirming these are our current recommendations prior to patient's discharge which I confirmed they are. The concern for TIA Is low given lack of unilateral weakness (described as gait unsteadiness that may have been ongoing for months and occur with his vision changes) and transient blurry vision with no visual field deficits or darkening of his vision. Also recommended seeing a neurologist in the OP setting as well. Discussed with Dr. Koch Attestation Interaction Mode: Phone Only Time of Phone Call : 04-05-2024 02:45 PM ET Interaction Attestation: Interprofessional internet consultation was delivered through telephonic and/or electronic communication upon the request of the patients treating physician, while the requesting and the rendering provider were not in the same physical location. Written report was provided to the requesting provider. Evaluation Duration (mins): 20 [place] Timer Summary ED Arrival Date and Time: 04-04-2024 02:45 PM ET Date and Time of Request: 04-05-2024 02:21 PM ET Physician Signature This document was electronically signed by: Carole Moreno MD 04/05/2024 02:53 PM Objective Exam - Vital Signs Vital Signs: Vital Signs - 24 hr 04/04/24 04/04/24 04/04/24 15:01 15:19 15:32 Temperature Pulse Rate 56 L Respiratory 19 Rate Blood Pressure 129/54 Blood Pressure [Right Arm] O2 Sat by Pulse 95 92 L Oximetry 04/04/24 04/04/24 04/04/24 15:40 15:50 16:00 Temperature Pulse Rate 57 L 55 L 55 L Respiratory 19 18 14 Rate Blood Pressure Blood Pressure [Right Arm] O2 Sat by Pulse 90 L 90 L 92 L Oximetry 04/04/24 04/04/24 04/04/24 16:10 16:20 16:30 Temperature Pulse Rate 56 L 58 L 51 L Respiratory 15 15 17 Rate Blood Pressure Blood Pressure [Right Arm] O2 Sat by Pulse 91 L 90 L 92 L Oximetry 04/04/24 04/04/24 04/04/24 16:40 16:50 17:00 Temperature Pulse Rate 55 L 55 L 57 L Respiratory 13 14 14 Rate Blood Pressure 147/63 Blood Pressure [Right Arm] O2 Sat by Pulse 90 L 91 L 90 L Oximetry 04/04/24 04/04/24 04/04/24 17:30 18:00 18:58 Temperature Pulse Rate 79 Respiratory 12 Rate Blood Pressure 160/71 107/86 Blood Pressure [Right Arm] O2 Sat by Pulse 90 L 92 L 93 L Oximetry 04/04/24 04/04/24 04/04/24 20:02 22:00 23:52 Temperature 98.2 F 97.9 F Pulse Rate 54 L 56 L 71 Respiratory 16 16 16 Rate Blood Pressure Blood Pressure 179/78 178/74 [Right Arm] O2 Sat by Pulse 91 L 91 L 94 L Oximetry 04/04/24 04/05/24 04/05/24 23:59 03:47 03:54 Temperature 97.9 F Pulse Rate 63 Respiratory 14 22 14 Rate Blood Pressure Blood Pressure 130/96 [Right Arm] O2 Sat by Pulse 93 L Oximetry 04/05/24 04/05/24 04/05/24 06:39 08:00 12:00 Temperature 97.8 F 97.6 F Pulse Rate 61 65 Respiratory 16 17 Rate Blood Pressure Blood Pressure 160/78 161/74 [Right Arm] O2 Sat by Pulse 91 L 92 L 91 L Oximetry - NIHSS Stroke Scale Date Completed: 04/05/24 Time Stroke Scale Completed: 09:02 Objective Data - Labs Lab/Micro Results: Lab Results-Last 24 Hours 04/04/24 04/04/24 04/04/24 Range/Units 15:10 15:10 15:10 WBC 6.4 (4.23-9.07) x10^3/uL RBC 5.59 (4.63-6.08) x10^6/uL Hgb 16.5 (13.7-17.5) g/dL Hct 50.8 (40.1-51.0) % MCV 90.9 (79.0-92.2) fL MCH 29.5 (25.7-32.2) pg MCHC 32.5 (32.3-36.5) g/dL RDW 13.2 (11.6-14.4) % Plt Count 215 (163-337) x10^3/uL MPV 11.0 (9.4-12.4) fL Gran % 61.8 (34.0-67.9) % Immature Gran % (Auto) 0.5 H (0.001-0.429) % Nucleat RBC Rel Count 0.0 (0.00-0.2) % Eos # (Auto) 0.43 (0.04-0.54) x10^3/uL Immature Gran # (Auto) 0.03 (0.001-0.031) x10^3u/L Absolute Lymphs (auto) 1.13 L (1.32-3.57) x10^3/uL Absolute Monos (auto) 0.81 (0.30-0.82) x10^3/uL Absolute Nucleated RBC 0.00 (0.00-0.012) x10^3u/L Lymphocytes % 17.6 L (21.8-53.1) % Monocytes % 12.6 H (5.3-12.2) % Eosinophils % 6.7 (0.8-7.0) % Basophils % 0.8 (0.2-1.2) % Absolute Granulocytes 3.98 (1.78-5.38) x10^3/uL Basophils # 0.05 (0.01-0.08) x10^3/uL Sodium 141 (135-145) mmol/L Potassium 3.8 (3.5-5.1) mmol/L Chloride 99 (98-107) mmol/L Carbon Dioxide 29 (22-30) mmol/L Anion Gap 16.8 H (5-15) MEQ/L BUN 26 H (9-20) mg/dL Creatinine 0.80 (0.66-1.25) mg/dL Estimated GFR 90.6 ML/MIN Glucose 132 H (74-106) mg/dL Hemoglobin A1c (4.5-6.0) % Calcium 9.1 (8.4-10.2) mg/dL Total Bilirubin 0.60 (0.2-1.3) mg/dL AST 35 (17-59) U/L ALT 30 (0-50) U/L Alkaline Phosphatase 82 (38-126) U/L Troponin I < 0.012 (0.000-0.033) ng/mL Serum Total Protein 7.2 (6.3-8.2) g/dL Albumin 4.3 (3.5-5.0) g/dL Triglycerides (30-150) mg/dL Cholesterol (50-200) mg/dL LDL Cholesterol (30-100) mg/dL HDL Cholesterol (40-60) mg/dL Heart Disease Risk Ratio Vitamin B12 (239-931) pg/mL Folic Acid (2.76 - >20) ng/mL 04/04/24 04/04/24 04/05/24 Range/Units 19:08 23:36 04:30 WBC 6.9 (4.23-9.07) x10^3/uL RBC 5.55 (4.63-6.08) x10^6/uL Hgb 16.4 (13.7-17.5) g/dL Hct 50.1 (40.1-51.0) % MCV 90.3 (79.0-92.2) fL MCH 29.5 (25.7-32.2) pg MCHC 32.7 (32.3-36.5) g/dL RDW 13.3 (11.6-14.4) % Plt Count 198 (163-337) x10^3/uL MPV 10.4 (9.4-12.4) fL Gran % (34.0-67.9) % Immature Gran % (Auto) (0.001-0.429) % Nucleat RBC Rel Count (0.00-0.2) % Eos # (Auto) (0.04-0.54) x10^3/uL Immature Gran # (Auto) (0.001-0.031) x10^3u/L Absolute Lymphs (auto) (1.32-3.57) x10^3/uL Absolute Monos (auto) (0.30-0.82) x10^3/uL Absolute Nucleated RBC (0.00-0.012) x10^3u/L Lymphocytes % (21.8-53.1) % Monocytes % (5.3-12.2) % Eosinophils % (0.8-7.0) % Basophils % (0.2-1.2) % Absolute Granulocytes (1.78-5.38) x10^3/uL Basophils # (0.01-0.08) x10^3/uL Sodium (135-145) mmol/L Potassium (3.5-5.1) mmol/L Chloride (98-107) mmol/L Carbon Dioxide (22-30) mmol/L Anion Gap (5-15) MEQ/L BUN (9-20) mg/dL Creatinine (0.66-1.25) mg/dL Estimated GFR ML/MIN Glucose (74-106) mg/dL Hemoglobin A1c (4.5-6.0) % Calcium (8.4-10.2) mg/dL Total Bilirubin (0.2-1.3) mg/dL AST (17-59) U/L ALT (0-50) U/L Alkaline Phosphatase (38-126) U/L Troponin I < 0.012 < 0.012 (0.000-0.033) ng/mL Serum Total Protein (6.3-8.2) g/dL Albumin (3.5-5.0) g/dL Triglycerides (30-150) mg/dL Cholesterol (50-200) mg/dL LDL Cholesterol (30-100) mg/dL HDL Cholesterol (40-60) mg/dL Heart Disease Risk Ratio Vitamin B12 (239-931) pg/mL Folic Acid (2.76 - >20) ng/mL 04/05/24 04/05/24 04/05/24 Range/Units 04:30 04:30 04:48 WBC (4.23-9.07) x10^3/uL RBC (4.63-6.08) x10^6/uL Hgb (13.7-17.5) g/dL Hct (40.1-51.0) % MCV (79.0-92.2) fL MCH (25.7-32.2) pg MCHC (32.3-36.5) g/dL RDW (11.6-14.4) % Plt Count (163-337) x10^3/uL MPV (9.4-12.4) fL Gran % (34.0-67.9) % Immature Gran % (Auto) (0.001-0.429) % Nucleat RBC Rel Count (0.00-0.2) % Eos # (Auto) (0.04-0.54) x10^3/uL Immature Gran # (Auto) (0.001-0.031) x10^3u/L Absolute Lymphs (auto) (1.32-3.57) x10^3/uL Absolute Monos (auto) (0.30-0.82) x10^3/uL Absolute Nucleated RBC (0.00-0.012) x10^3u/L Lymphocytes % (21.8-53.1) % Monocytes % (5.3-12.2) % Eosinophils % (0.8-7.0) % Basophils % (0.2-1.2) % Absolute Granulocytes (1.78-5.38) x10^3/uL Basophils # (0.01-0.08) x10^3/uL Sodium 139 (135-145) mmol/L Potassium 3.8 (3.5-5.1) mmol/L Chloride 101 (98-107) mmol/L Carbon Dioxide 30 (22-30) mmol/L Anion Gap 10.6 (5-15) MEQ/L BUN 20 (9-20) mg/dL Creatinine 0.67 (0.66-1.25) mg/dL Estimated GFR 95.6 ML/MIN Glucose 103 (74-106) mg/dL Hemoglobin A1c 5.97 (4.5-6.0) % Calcium 9.1 (8.4-10.2) mg/dL Total Bilirubin (0.2-1.3) mg/dL AST (17-59) U/L ALT (0-50) U/L Alkaline Phosphatase (38-126) U/L Troponin I (0.000-0.033) ng/mL Serum Total Protein (6.3-8.2) g/dL Albumin (3.5-5.0) g/dL Triglycerides (30-150) mg/dL Cholesterol (50-200) mg/dL LDL Cholesterol (30-100) mg/dL HDL Cholesterol (40-60) mg/dL Heart Disease Risk Ratio Vitamin B12 344 (239-931) pg/mL Folic Acid > 20.0 (2.76 - >20) ng/mL 04/05/24 Range/Units 05:20 WBC (4.23-9.07) x10^3/uL RBC (4.63-6.08) x10^6/uL Hgb (13.7-17.5) g/dL Hct (40.1-51.0) % MCV (79.0-92.2) fL MCH (25.7-32.2) pg MCHC (32.3-36.5) g/dL RDW (11.6-14.4) % Plt Count (163-337) x10^3/uL MPV (9.4-12.4) fL Gran % (34.0-67.9) % Immature Gran % (Auto) (0.001-0.429) % Nucleat RBC Rel Count (0.00-0.2) % Eos # (Auto) (0.04-0.54) x10^3/uL Immature Gran # (Auto) (0.001-0.031) x10^3u/L Absolute Lymphs (auto) (1.32-3.57) x10^3/uL Absolute Monos (auto) (0.30-0.82) x10^3/uL Absolute Nucleated RBC (0.00-0.012) x10^3u/L Lymphocytes % (21.8-53.1) % Monocytes % (5.3-12.2) % Eosinophils % (0.8-7.0) % Basophils % (0.2-1.2) % Absolute Granulocytes (1.78-5.38) x10^3/uL Basophils # (0.01-0.08) x10^3/uL Sodium (135-145) mmol/L Potassium (3.5-5.1) mmol/L Chloride (98-107) mmol/L Carbon Dioxide (22-30) mmol/L Anion Gap (5-15) MEQ/L BUN (9-20) mg/dL Creatinine (0.66-1.25) mg/dL Estimated GFR ML/MIN Glucose (74-106) mg/dL Hemoglobin A1c (4.5-6.0) % Calcium (8.4-10.2) mg/dL Total Bilirubin (0.2-1.3) mg/dL AST (17-59) U/L ALT (0-50) U/L Alkaline Phosphatase (38-126) U/L Troponin I (0.000-0.033) ng/mL Serum Total Protein (6.3-8.2) g/dL Albumin (3.5-5.0) g/dL Triglycerides 159 H (30-150) mg/dL Cholesterol 135 (50-200) mg/dL LDL Cholesterol 83 (30-100) mg/dL HDL Cholesterol 31 L (40-60) mg/dL Heart Disease Risk Ratio 4.0 Vitamin B12 (239-931) pg/mL Folic Acid (2.76 - >20) ng/mL - Other Procedures & Test Other Procedures & Test: Respiratory Therapy 04/04/24 21:13 BiPap/CPAP ROUTINE 04/04/24 22:36 Oxygen Nasal Cannula 3 lpm - Radiology Orders Radiology Orders: Radiology Procedures Category Date Time Status CHEST 1 VIEW (PORTABLE) Stat Exams 04/05/24 13:56 Completed HEAD WITHOUT CONTRAST [CT] Stat Exams 04/04/24 15:15 Completed MRI BRAIN W/O CONTRAST [MRI] Routine Exams 04/05/24 14:00 Completed ORBITS FOREIGN BODIES (EYE) Urgent Exams 04/05/24 08:49 Completed Assessment & Plan - Encounter Encounter: "The entirety of this encounter was performed via Telemedicine using audio and visual "
--- NOTE | 2024-04-05 16:34 | PCM.DS ---
Discharge Summary Date of Admission: 04/04/24 19:17 Date of Discharge: 04/05/24 Admitting Physician: YANETH TABARES MD Primary Care Provider: AMADO ROME Allergies Allergies No Known Drug Allergies Allergy (Verified 04/04/24 14:45) Hospital Summary - Hospital Course Hospital Course: Mr. Lynn is a 79 year old male with a pmhx of HTN, OA, and GERD admitted 04/04/24 for evaluation of ataxia and vision changes. Patient reported unsteady gait ( for the past 6-8 months), dizziness and blurred vision in right eye since the evening before arrival. 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 He has not had a similar episode of intense im balance or sudden worsening of visual acuity. CT head with no established territorial infarction, intracranial hemorrhage, or mass. Left eye lens is not visualized. Calcified rim is noted almost completely involving the left sclera effect was noted. Lab findings remarkable for elevated GAP and BUN. Vitals stable. Patient states gait changes have been ongoing for several months. Neurology consulted with recommendations for MRI and PT evaluation. MRI with no acute findings. Tele-neuro feels the concern for TIA is low given lack of unilateral weakness. Recommends to continue daily ASA- no need for plavix. Patient to see his solar electric practitioner which he has an appt with as well as neurology - appt made. PT evaluation notes that patient is performing functional mobility at PLOF. No further physical therapy warranted. Patient stable for discharge. Elevated triglycerides/LDL >60 - will send home on statin Discharge Note New Diagnosis: Ataxia/vision changes New Medications: statin Follow Up: PCP/neurology/opthalmology Latest Assessment & Plan (1) Ataxia Current Visit: Yes Status: Acute Assessment & Plan: -?possible CVA -CT head with no acute findings -tele-neuro consulted with recs for MRI which showed no acute findings - Neuro follow up note reviewed - agree with plan for continuation of ASA, neuro/opthalmology follow up -tele -permissive HTN x 24 hours -PT/OT eval -ASA 81mg -currently taking - Plavix if MRI shows CVA -A1c 5.97 -B12/Fol wnl -lipid with elevated triglycerides, LDL >60 - statin Code(s): R27.0 - ATAXIA, UNSPECIFIED Vision changes: -right eye with blurred vision -transiet -no visual field deficits or darkening of his vision -Resolved now - pt to follow up with opthalmology - has appt (2) HTN (hypertension) Current Visit: Yes Status: Acute Assessment & Plan: -permissive HTN for the first 24 hours - can resume home meds today Code(s): I10 - ESSENTIAL (PRIMARY) HYPERTENSION (3) Hypoxia Current Visit: Yes Status: Acute Assessment & Plan: -borderline with prn oxygen at home -continuous pulse ox -supplemental oxygen for goal spo2 >91% - at 3L with spo2 at 91% -patient is prescribed 3L of oxygen prn for home use I spent 35 minutes [id number] with the patient on the day of discharge performing discharge exam, discussing hospital stay and discharge instructions with patient and caregivers, preparation of discharge records, prescriptions & referral forms and addressing any questions/concerns the patient had as documented above. - Vitals & Intake/Output Vital Signs: Vital Signs Temperature 97.6 F 04/05/24 12:00 Pulse Rate 65 04/05/24 12:00 Respiratory Rate 17 04/05/24 12:00 Blood Pressure 161/74 04/05/24 12:00 O2 Sat by Pulse Oximetry 91 L 04/05/24 12:00 Intake & Output: Intake & Output 04/03/24 04/04/24 04/05/24 04/06/24 11:59 11:59 11:59 11:59 Intake Total 400 120 Balance 400 120 Weight 91.6 kg - Lab Result Diagrams: 04/05/24 04:30 04/05/24 04:30 Lab Results-Last 24 Hrs: Lab Results-Last 24 Hours 04/04/24 04/04/24 04/05/24 Range/Units 19:08 23:36 04:30 WBC 6.9 (4.23-9.07) x10^3/uL RBC 5.55 (4.63-6.08) x10^6/uL Hgb 16.4 (13.7-17.5) g/dL Hct 50.1 (40.1-51.0) % MCV 90.3 (79.0-92.2) fL MCH 29.5 (25.7-32.2) pg MCHC 32.7 (32.3-36.5) g/dL RDW 13.3 (11.6-14.4) % Plt Count 198 (163-337) x10^3/uL MPV 10.4 (9.4-12.4) fL Sodium (135-145) mmol/L Potassium (3.5-5.1) mmol/L Chloride (98-107) mmol/L Carbon Dioxide (22-30) mmol/L Anion Gap (5-15) MEQ/L BUN (9-20) mg/dL Creatinine (0.66-1.25) mg/dL Estimated GFR ML/MIN Glucose (74-106) mg/dL Hemoglobin A1c (4.5-6.0) % Calcium (8.4-10.2) mg/dL Troponin I < 0.012 < 0.012 (0.000-0.033) ng/mL Triglycerides (30-150) mg/dL Cholesterol (50-200) mg/dL LDL Cholesterol (30-100) mg/dL HDL Cholesterol (40-60) mg/dL Heart Disease Risk Ratio Vitamin B12 (239-931) pg/mL Folic Acid (2.76 - >20) ng/mL 04/05/24 04/05/24 04/05/24 Range/Units 04:30 04:30 04:48 WBC (4.23-9.07) x10^3/uL RBC (4.63-6.08) x10^6/uL Hgb (13.7-17.5) g/dL Hct (40.1-51.0) % MCV (79.0-92.2) fL MCH (25.7-32.2) pg MCHC (32.3-36.5) g/dL RDW (11.6-14.4) % Plt Count (163-337) x10^3/uL MPV (9.4-12.4) fL Sodium 139 (135-145) mmol/L Potassium 3.8 (3.5-5.1) mmol/L Chloride 101 (98-107) mmol/L Carbon Dioxide 30 (22-30) mmol/L Anion Gap 10.6 (5-15) MEQ/L BUN 20 (9-20) mg/dL Creatinine 0.67 (0.66-1.25) mg/dL Estimated GFR 95.6 ML/MIN Glucose 103 (74-106) mg/dL Hemoglobin A1c 5.97 (4.5-6.0) % Calcium 9.1 (8.4-10.2) mg/dL Troponin I (0.000-0.033) ng/mL Triglycerides (30-150) mg/dL Cholesterol (50-200) mg/dL LDL Cholesterol (30-100) mg/dL HDL Cholesterol (40-60) mg/dL Heart Disease Risk Ratio Vitamin B12 344 (239-931) pg/mL Folic Acid > 20.0 (2.76 - >20) ng/mL 04/05/24 Range/Units 05:20 WBC (4.23-9.07) x10^3/uL RBC (4.63-6.08) x10^6/uL Hgb (13.7-17.5) g/dL Hct (40.1-51.0) % MCV (79.0-92.2) fL MCH (25.7-32.2) pg MCHC (32.3-36.5) g/dL RDW (11.6-14.4) % Plt Count (163-337) x10^3/uL MPV (9.4-12.4) fL Sodium (135-145) mmol/L Potassium (3.5-5.1) mmol/L Chloride (98-107) mmol/L Carbon Dioxide (22-30) mmol/L Anion Gap (5-15) MEQ/L BUN (9-20) mg/dL Creatinine (0.66-1.25) mg/dL Estimated GFR ML/MIN Glucose (74-106) mg/dL Hemoglobin A1c (4.5-6.0) % Calcium (8.4-10.2) mg/dL Troponin I (0.000-0.033) ng/mL Triglycerides 159 H (30-150) mg/dL Cholesterol 135 (50-200) mg/dL LDL Cholesterol 83 (30-100) mg/dL HDL Cholesterol 31 L (40-60) mg/dL Heart Disease Risk Ratio 4.0 Vitamin B12 (239-931) pg/mL Folic Acid (2.76 - >20) ng/mL - Radiology Exams Ordered Rad Exams-Entire Visit: Radiology Procedures Category Date Time Status CHEST 1 VIEW (PORTABLE) Stat Exams 04/05/24 13:56 Completed HEAD WITHOUT CONTRAST [CT] Stat Exams 04/04/24 15:15 Completed MRI BRAIN W/O CONTRAST [MRI] Routine Exams 04/05/24 14:00 Completed ORBITS FOREIGN BODIES (EYE) Urgent Exams 04/05/24 08:49 Completed - Procedures and Test Procedures and Tests throughout Hospitalization: Therapy Orders & Screens 04/04/24 19:21 Respiratory Therapy Consult ONCE Comment: Reason For Exam: 04/04/24 21:13 BiPap/CPAP ROUTINE Comment: Diagnosis: visual disturbance, ataxia 04/04/24 21:19 PT Eval & Treat (MD Order) ONCE Reason for Eval:: possible stroke, ataxic gait Diagnosis: visual disturbance, ataxia OT Eval and Treat (MD Order) ONCE Comment: Physician Instructions: Reason For Exam: Diagnosis: visual disturbance, ataxia 04/04/24 22:36 Oxygen Nasal Cannula 3 lpm Comment: Diagnosis: loss of balance, blurry vision Discharge Exam General Appearance: no apparent distress Neurologic Exam: alert, oriented x 3, cooperative Eye Exam: PERRL, other (left eye blindness) Ears, Nose, Throat Exam: normal ENT inspection Neck Exam: normal inspection Respiratory Exam: normal breath sounds, lungs clear Cardiovascular Exam: regular rate/rhythm, normal heart sounds Gastrointestinal/Abdomen Exam: soft, normal bowel sounds Male Genitalia Exam: deferred Rectal Exam: deferred Back Exam: normal inspection Extremity Exam: normal inspection Skin Exam: normal color Final Diagnosis/Problem List - Final Discharge Diagnosis/Problem (1) Ataxia Current Visit: Yes Status: Chronic Code(s): R27.0 - ATAXIA, UNSPECIFIED (2) Blurred vision, right eye Current Visit: Yes Status: Resolved Code(s): H53.8 - OTHER VISUAL DISTURBANCES (3) HTN (hypertension) Current Visit: Yes Status: Chronic Code(s): I10 - ESSENTIAL (PRIMARY) HYPERTENSION (4) Hypoxia Current Visit: Yes Status: Chronic Code(s): R09.02 - HYPOXEMIA (5) COPD (chronic obstructive pulmonary disease) Current Visit: Yes Status: Chronic - Discharge Disposition: Home, Self-Care Condition: Good Prescriptions: New Atorvastatin Calcium 10 mg PO DAILY 30 Days #30 tablet Continue Furosemide 40 mg [Lasix 40 MG] 40 mg PO DAILY Amlodipine Besylate 5 mg [Norvasc 5 mg] 10 mg PO DAILY Metoprolol Succinate 100 mg [Toprol Xl 100 MG] 100 mg PO DAILY Fluticasone Propionate [Flonase NASAL] 2 sprays NS DAILY Losartan Potassium 100 mg PO DAILY Aspirin EC 81 mg [Ecotrin 81 mg] 81 mg PO DAILY Follow up with: AMADO ROME MD [Primary Care Provider] - 04/09/24 3:30 pm BETO MELENDEZ NP [NON-STAFF PHY W/O PRIVILEGES] - 05/17/24 10:30 am
[2024-04-05 17:15] VITALS: BP 158/69; PULSE 61; RESP 19; TEMP 97.7; O2SAT 90
== END 2024-04-05 18:10 | disposition home or self-care (01) ==
LOC: ED 14:19 → MED SURG 19:17
PROVIDERS: ADMIT Internal Medicine; ATTEND Internal Medicine
DX: R27.0 Ataxia, unspecified (principal); I11.0 Hypertensive heart disease with heart failure; I50.9 Heart failure, unspecified; R09.02 Hypoxemia; H53.8 Other visual disturbances; J44.9 Chronic obstructive pulmonary disease, unspecified; Z79.899 Other long term (current) drug therapy
CPT/HCPCS: 36000; 36415; 70030; 70450; 70551; 71045; 80048; 80053; 80061; 82607; 82746; 83036; 83721; 84484; 85025; 85027; 93005; 93041; 94660; 94760; 94762; 97161; 99285; Q3014; 93268; J1650; A9270-GY; G0378